=== PATIENT | male | born 1940 | race Caucasian/White ===

== ENCOUNTER → 2018-02-23 12:25 | Outpatient (CLI) | payer MEDICARE, SELFPAY ==
[2018-04-25 10:55] LABS: International Normalized Ratio 2.5; Prothrombin Time (Protime)PT. 27.2 SECONDS (11.7-14.9)
== END ==
PROVIDERS: Family Provider Family Medicine; PCP Family Medicine; Referring Provider Family Medicine; Visit Provider Family Medicine
DX: I48.91 Unspecified atrial fibrillation (principal)
CPT/HCPCS: 85610

== ENCOUNTER → 2019-01-12 | Outpatient (CLI) | payer MEDICARE, SELFPAY ==
[2019-01-12 11:54] LABS: International Normalized Ratio 2.1; Prothrombin Time (Protime)PT. 23.2 SECONDS (11.7-14.9)
== END | disposition home or self-care (01) ==
PROVIDERS: Family Provider Family Medicine; PCP Family Medicine; Referring Provider Family Medicine
DX: I48.91 Unspecified atrial fibrillation (principal)
CPT/HCPCS: 85610